=== PATIENT | female | born 1990 | race Caucasian/White ===

== ENCOUNTER 2020-05-10 10:21 | Outpatient (RCR) | payer OTHER ==
--- NOTE | 2020-04-07 09:25 | Diagnostic Imaging Report ---
EXAMINATION: AP supine abdomen INDICATION: Abdominal pain. Patient with history of nephrolithiasis. COMPARISON: 11/04/2018. FINDINGS: There is a nonobstructive bowel gas pattern. Scattered gas and stool is noted in the colon. No unusual stool burden. No abnormal abdominal calcification or organomegaly is appreciated. Surgical clips are demonstrated in the right upper abdominal quadrant. No findings to suggest pneumoperitoneum on this supine study. No acute osseous abnormality is identified. IMPRESSION: Nonobstructive bowel gas pattern. No radiographic evidence of an acute abdominal process. Dictated by: Dictated on workstation # [id number]
--- NOTE | 2020-04-07 09:25 | Diagnostic Imaging Report ---
PROCEDURE: CT abdomen and pelvis without contrast. TECHNIQUE: Multiple contiguous axial images were obtained through the abdomen and pelvis without the use of intravenous contrast. Auto Exposure Controls were utilized during the CT exam to meet ALARA standards for radiation dose reduction. INDICATION: Abdominal pain. Concern for kidney stone. COMPARISON: CT abdomen/pelvis performed on 11/04/2018. FINDINGS: Absence of intravenous contrast decreases sensitivity for detection of focal lesions and vascular pathology. LOWER THORAX: Lung bases are clear. Visualized heart is normal in size. LIVER: Normal. GALLBLADDER: Surgically absent. BILE DUCTS: No biliary ductal dilatation. SPLEEN: Normal. Incidental note is made of unchanged small accessory spleens/splenules in the splenic hilum and anterior to the inferior spleen. PANCREAS: Normal. No pancreatic ductal dilatation. ADRENAL GLANDS: No nodules. KIDNEYS AND URETERS: No hydronephrosis. No nephroureterolithiasis. No ureteral abnormality is demonstrated. STOMACH AND BOWEL: Stomach is physiologically-distended. No bowel obstruction. No inflammatory changes. APPENDIX: Surgically absent. PELVIC ORGANS/BLADDER: No bladder wall thickening or calculus is demonstrated. Uterus demonstrates a normal CT appearance. No adnexal masses. PERITONEUM AND RETROPERITONEUM: No pneumoperitoneum. No abdominal free fluid or loculated collection. LYMPH NODES: No lymphadenopathy. VESSELS: Abdominal aorta is nonaneurysmal. ABDOMINAL WALL: Unremarkable. BONES: No acute abnormality. IMPRESSION: No acute abdominal or pelvic pathology. No evidence of hydroureteronephrosis or nephroureterolithiasis. Dictated by: Dictated on workstation # [id number]
[~2020-05-10 10:21] MED LIST: ACET-78 PO; ALBU17AE3; ASPI-1238 PO; BCP; BTR10SP2 NS; DOCU100C37 PO; FOLI1TAB33 PO; IBUP-1780 PO; OXC5T PO; OXYC1TAB16 PO; PNV11TAB5 PO; PROG200C10 PO
== END 2020-07-06 | disposition home or self-care (01) ==
LOC: MERGE 10:21 → RAD 10:21
PROVIDERS: ATTEND Urology
DX: R10.9 Unspecified abdominal pain (principal); R14.3 Flatulence; Z87.442 Personal history of urinary calculi
CPT/HCPCS: 36415; 74018; 74176; 82140; 82340; 82507; 82570; 83735; 83945; 83986; 84105; 84133; 84300; 84392; 84560

== ENCOUNTER → 2020-06-24 | Outpatient (CLI) | payer BC, OTHER ==
--- NOTE | 2020-06-24 17:40 | Diagnostic Imaging Report ---
INDICATION: Pain in tailbone for past 3-4 months. TECHNIQUE: AP and lateral views of the sacrum and coccyx, 3:40 p.m. CORRELATION STUDY: None. FINDINGS: Sacrum and coccyx alignment is unremarkable. No acute angulation or significant offset. No bony destructive change. Visualized sacroiliac joints are unremarkable. Visualized lower lumbar spine as well as partial visualization of bilateral hip joints, unremarkable. IMPRESSION: Unremarkable examination of the sacrum and coccyx. Dictated by: Dictated on workstation # [id number]
== END ==
LOC: RAD 15:27
PROVIDERS: ATTEND Nurse Practitioner Family
DX: M53.3 Sacrococcygeal disorders, not elsewhere classified (principal)
CPT/HCPCS: 72220

== ENCOUNTER → 2020-08-25 | Outpatient (CLI) | payer OTHER ==
--- NOTE | 2020-08-25 15:23 | Diagnostic Imaging Report ---
PROCEDURE: MRI lumbar spine. TECHNIQUE: Multiplanar, multisequence MRI of the lumbar spine was performed without contrast. INDICATION: Low back pain. COMPARISON: None FINDINGS: Alignment of lumbar column is normal. There is no subluxation or fracture. There is no osseous lesion. The visualized conus medullaris and nerve roots are grossly normal. There is mild diffuse facet and ligament flavum hypertrophy. There is no broad-based disc bulge or herniation. There is no foraminal or central canal stenosis. No paraspinous mass or infiltrative process is seen. IMPRESSION: 1. Mild diffuse facet and ligament flavum hypertrophy. No foraminal or central canal stenosis. 2. No broad-based disc bulge or herniation. Dictated by: Dictated on workstation # [id number]
== END ==
LOC: RAD 14:00
PROVIDERS: ATTEND Physician Assistant
DX: M47.816 Spondylosis without myelopathy or radiculopathy, lumbar region (principal); M24.28 Disorder of ligament, vertebrae
CPT/HCPCS: 72148

== ENCOUNTER → 2020-08-26 | Outpatient (CLI) | payer OTHER ==
[2020-08-26 13:59] LABS: TOTAL PROTEIN 7.2 GM/DL (6.4-8.2)
[2020-08-26 14:01] LABS: BILIRUBIN,TOTAL 0.4 MG/DL (0.1-1.0)
[2020-08-26 14:05] LABS: BILIRUBIN,DIRECT 0.2 MG/DL (0.0-0.3); BILIRUBIN,INDIRECT 0.2 MG/DL
== END ==
LOC: LAB 13:32
PROVIDERS: ATTEND Podiatrist Foot & Ankle Surgery
DX: B35.1 Tinea unguium (principal)
CPT/HCPCS: 36415; 80076

== ENCOUNTER 2021-02-13 09:11 | Outpatient (RCR) | payer OTHER | END 2021-02-25 | disposition home or self-care (01) | LOC: LAB 09:11 | PROVIDERS: ATTEND Obstetrics & Gynecology | DX: N91.2 Amenorrhea, unspecified (principal) | CPT/HCPCS: 36415; 84702 ==

== ENCOUNTER 2021-08-23 10:44 | Emergency (ER) | payer OTHER, MEDICAID ==
[2021-08-23 11:03] LABS: BASOPHILS % (AUTO) 0 % (0-10); EOSINOPHILS # (AUTO) 0.1 10^3/uL (0.0-0.3); EOSINOPHILS % (AUTO) 1 % (0-10); HEMATOCRIT 37 % (35-52); HEMOGLOBIN 12.7 g/dL (11.5-16.0); LYMPHOCYTES % (AUTO) 12 % (12-44); MEAN CORPUSCULAR HEMOGLOBIN 31 pg (25-34); MEAN CORPUSCULAR HGB CONC 34 g/dL (32-36); MEAN CORPUSCULAR VOLUME 91 fL (80-99); MEAN PLATELET VOLUME 11.3 fL (9.0-12.2); MONOCYTES # (AUTO) 0.7 10^3/uL (0.0-1.0); MONOCYTES % (AUTO) 8 % (0-12); NEUTROPHILS # (AUTO) 6.5 10^3/uL (1.8-7.8); NEUTROPHILS % (AUTO) 78 % (42-75); PLATELET COUNT 169 10^3/uL (130-400); WHITE BLOOD COUNT 8.4 10^3/uL (4.3-11.0)
[2021-08-23 11:07] LABS: ALBUMIN 3.2 GM/DL (3.2-4.5); POTASSIUM 3.6 MMOL/L (3.6-5.0)
[2021-08-23 11:08] LABS: CALCIUM 8.6 MG/DL (8.5-10.1)
[2021-08-23 11:10] LABS: TOTAL PROTEIN 6.9 GM/DL (6.4-8.2)
[2021-08-23 11:11] LABS: BILIRUBIN,TOTAL 0.4 MG/DL (0.1-1.0)
[2021-08-23 11:13] LABS: CREATININE SERUM 0.6 MG/DL (0.60-1.30)
[2021-08-23] MEDS ORDERED: LACTATED RINGERS 1,000 ML IV ONE (11:15)
[2021-08-23 11:18] LABS: INR 0.9 (0.8-1.4); PROTHROMBIN TIME PATIENT 12.9 SEC (12.2-14.7)
[2021-08-23 11:22] LABS: BILIRUBIN,URINE NEGATIVE (NEGATIVE); CLARITY,URINE CLEAR; COLOR,URINE YELLOW; GLUCOSE, URINE (UA) NEGATIVE (NEGATIVE); KETONES,URINE NEGATIVE (NEGATIVE); LEUKOCYTE ESTERASE ,URINE 1+ (NEGATIVE); NITRITE,URINE NEGATIVE (NEGATIVE); PROTEIN,URINE NEGATIVE (NEGATIVE)
[2021-08-23] MEDS ORDERED: BEBTELOVIMAB 175 MG/2 ML VIAL IV ONE (11:30)
[2021-08-23 11:34] LABS: BACTERIA,URINE LARGE /HPF; RBC,URINE 0-2 /HPF
--- NOTE | 2021-08-23 11:38 | Diagnostic Imaging Report ---
Indication: Respiratory distress Findings: The lungs are clear. There is no failure, effusion or pneumothorax. IMPRESSION: Normal frontal chest. Dictated by: Dictated on workstation # [id number]
--- NOTE | 2021-08-23 12:01 | ED General ---
General Chief Complaint: COVID19 Suspect/Confirmed Stated Complaint: COVID +, LOW SATS, 32 WEEKS PREG Nursing Triage Note: PT AMB TO RM 9 WITH C/O TESTING POS FOR COVID YESTERDAY AT HOME AND AT [facility]. SYMPTOMS STARTED SUNDAY. PT IS 32 WEEKS AND 2 DAYS . PT STATES O2 SAT AT HOME WAS UPPER 80S AND FELT SOB Source of Information: Patient Exam Limitations: No Limitations History of Present Illness Date Seen by Provider: Aug 23, 2021 Time Seen by Provider: 10:48 Initial Comments This is a 31-year-old young lady at 32 weeks gestational age [facility] with worsening symptoms of shortness of breath and reported hypoxia. She states her oxygen saturation at home was in the upper 80s. She started feeling ill about 48 hours ago and tested positive both at home and at [facility] yesterday. She has not started any antiviral or antibiotic therapies for COVID-19. She denies any chest pain but does feel short of breath. During assessment she is noted to have sinus tachycardia but oxygen saturations were in the upper 90s. She is not in respiratory distress. She is afebrile. She has positive movement today. She is noted to be hypertensive on assessment. She reports history of prior -induced hypertension with a previous . She has not had hypertension noted yet with this . Allergies and Home Medications Allergies Coded Allergies: amoxicillin (Verified Allergy, Unknown, 08/23/21) clavulanic acid (Verified Allergy, Unknown, 08/23/21) hydrocodone (Verified Adverse Reaction, Intermediate, Pt takes Oxycodone at home, 06/25/20) hallucinations Patient Home Medication List Home Medication List Reviewed: Yes Acetaminophen (Acetaminophen) 500 Mg Tablet, 1,000 MG PO Q6HR Prescribed by: MISSY HENLEY on 10/15/18720 Albuterol (Proventil) 17 Gm Inh, (Reported) Entered as Reported by: CELESTE RIDER on 09/03/082052 Docusate Sodium (Docusate Sodium) 100 Mg Capsule, 100 MG PO BID Prescribed by: MISSY HENLEY on 10/15/18720 Ibuprofen (Ibuprofen) 800 Mg Tablet, 800 MG PO Q8HR Prescribed by: MISSY HENLEY on 10/15/18720 Oxycodone Hcl (Oxycodone IR) 5 Mg Tab, 5 MG PO Q6H PRN for PAIN-SEVERE Prescribed by: MISSY HENLEY on 10/15/18 0721 Uis362/FA/Omega3/Dha/Fish Oil ( Gummies) 1 Each Tab.chew, 2 TAB.CHEW PO HS, (Reported) Entered as Reported by: PALMA LARIOS on 03/29/18 0834 [Bcp] , (Reported) Entered as Reported by: CELESTE RIDER on 09/03/082052 Review of Systems Review of Systems Constitutional: no symptoms reported EENTM: no symptoms reported Respiratory: see HPI Cardiovascular: no symptoms reported Gastrointestinal: no symptoms reported Genitourinary: no symptoms reported : Yes Expected Date of Delivery: Oct 01, 2021 Musculoskeletal: no symptoms reported Skin: no symptoms reported Psychiatric/Neurological: No Symptoms Reported Hematologic/Lymphatic: No Symptoms Reported Past Hfxbdyo-Lvrwyy-Pihumw Hx Patient Social History Tobacco Use?: No Use of E-Cig and/or Vaping dev: No Substance use?: No Alcohol Use?: No Pt feels they are or have been: No Immunizations Up To Date Tetanus Booster (TDap): Less than 5yrs Influenza Vaccine Up-to-Date: Yes; Up-to-Date First/Initial COVID19 Vaccinat: NOV 16 Second COVID19 Vaccination Kyle: DEC 16 COVID19 Vaccine 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 Seasonal Allergies Seasonal Allergies: No Past Medical History Surgery/Hospitalization HX: DEPRESSION MARE, APPY, L KNEE SCOPE Surgeries: Yes (WISDOM TEETH) Appendectomy, Orthopedic Respiratory: No Cardiac: Yes Hypertension (With prior ) Neurological: Yes Headaches /Migraines : Yes Expected Date of Delivery: Oct 01, 2021 Reproductive Disorders: Yes Female Reproductive Disorders: Polycystic Ovarian Dis Sexually Transmitted Disease: No HIV/AIDS: No Genitourinary: No Gastrointestinal: No Musculoskeletal: No Endocrine: No HEENT: No Cancer: No Psychosocial: No Integumentary: No Blood Disorders: No Adverse Reaction/Blood Tranf: No Physical Exam Vital Signs Vital Signs - First Documented 08/23/21 08/23/21 10:48 11:21 Temp 36.3 Pulse 127 Resp 20 B/P (MAP) 157/118 (131) O2 Delivery Room Air Capillary Refill : Height, Weight, BMI Height: 5'6.00" Weight: 216lbs. 0.0oz. 97.563996fm; 28.97 BMI Method:Stated General Appearance: No Apparent Distress, WD/WN HEENT: PERRL/EOMI, Normal ENT Inspection, Pharynx Normal Neck: Normal Inspection Respiratory: Lungs Clear, Normal Breath Sounds, No Accessory Muscle Use Cardiovascular: No Edema, No Murmur, Tachycardia Gastrointestinal: Non Tender, Soft, Other (Appropriately gravid for gestational age) Extremity: Normal Inspection, No Calf Tenderness, No Pedal Edema Neurologic/Psychiatric: Alert, Oriented x3, No Motor/Sensory Deficits, Normal Mood/Affect, press worker helper II-XII Norm as Tested Skin: Normal Color, Warm/Dry Progress/Results/Core Measures Suspected Sepsis SIRS Temperature: Pulse: 127 Respiratory Rate: 20 Laboratory Tests 08/23/21 10:55: White Blood Count 8.4 Blood Pressure 157 /118 Mean: 131 Laboratory Tests 08/23/21 10:55: Creatinine 0.60, INR Comment 0.9, Platelet Count 169, Total Bilirubin 0.4 Results/Orders Lab Results Laboratory Tests Test 08/23/21 10:55 08/23/21 11:00 Range/Units White Blood Count 8.4 4.3-11.0 10^3/uL Red Blood Count 4.08 3.80-5.11 10^6/uL Hemoglobin 12.7 11.5-16.0 g/dL Hematocrit 37 35-52 % Mean Corpuscular Volume 91 80-99 fL Mean Corpuscular Hemoglobin 31 25-34 pg Mean Corpuscular Hemoglobin Concent 34 32-36 g/dL Red Cell Distribution Width 13.0 10.0-14.5 % Platelet Count 169 130-400 10^3/uL Mean Platelet Volume 11.3 9.0-12.2 fL Immature Granulocyte % (Auto) 1 % Neutrophils (%) (Auto) 78 H 42-75 % Lymphocytes (%) (Auto) 12 12-44 % Monocytes (%) (Auto) 8 0-12 % Eosinophils (%) (Auto) 1 0-10 % Basophils (%) (Auto) 0 0-10 % Neutrophils # (Auto) 6.5 1.8-7.8 10^3/uL Lymphocytes # (Auto) 1.0 1.0-4.0 10^3/uL Monocytes # (Auto) 0.7 0.0-1.0 10^3/uL Eosinophils # (Auto) 0.1 0.0-0.3 10^3/uL Basophils # (Auto) 0.0 0.0-0.1 10^3/uL Immature Granulocyte # (Auto) 0.1 0.0-0.1 10^3/uL Prothrombin Time 12.9 12.2-14.7 SEC INR Comment 0.9 0.8-1.4 Activated Partial Thromboplast Time 25 24-35 SEC Sodium Level 134 L 135-145 MMOL/L Potassium Level 3.6 3.6-5.0 MMOL/L Chloride Level 105 98-107 MMOL/L Carbon Dioxide Level 21 21-32 MMOL/L Anion Gap 8 5-14 MMOL/L Blood Urea Nitrogen 4 L 7-18 MG/DL Creatinine 0.60 0.60-1.30 MG/DL Estimat Glomerular Filtration Rate 124 BUN/Creatinine Ratio 7 Glucose Level 125 H 70-105 MG/DL Uric Acid 4.5 2.6-7.2 MG/DL Calcium Level 8.6 8.5-10.1 MG/DL Corrected Calcium 9.2 8.5-10.1 MG/DL Total Bilirubin 0.4 0.1-1.0 MG/DL Aspartate Amino Transf (AST/SGOT) 11 5-34 U/L Alanine Aminotransferase (ALT/SGPT) 7 0-55 U/L Alkaline Phosphatase 113 40-136 U/L C-Reactive Protein High Sensitivity 1.82 H 0.00-0.50 MG/DL Total Protein 6.9 6.4-8.2 GM/DL Albumin 3.2 3.2-4.5 GM/DL Urine Color YELLOW Urine Clarity CLEAR Urine pH 7.0 5-9 Urine Specific [place] 1.020 1.016-1.022 Urine Protein NEGATIVE NEGATIVE Urine Glucose (UA) NEGATIVE NEGATIVE Urine Ketones NEGATIVE NEGATIVE Urine Nitrite NEGATIVE NEGATIVE Urine Bilirubin NEGATIVE NEGATIVE Urine Urobilinogen 4.0 < = 1.0 MG/DL Urine Leukocyte Esterase 1+ H NEGATIVE Urine RBC (Auto) NEGATIVE NEGATIVE Urine RBC 0-2 /HPF Urine WBC 10-25 H /HPF Urine Squamous Epithelial Cells 10-25 H /HPF Urine Crystals NONE /LPF Urine Bacteria LARGE H /HPF Urine Casts NONE /LPF Urine Mucus NEGATIVE /LPF Urine Culture Indicated YES My Orders Orders - LINDA ARMANDO MD Cbc With Automated Diff (08/23/21 10:48) Comprehensive Metabolic Panel (08/23/21 10:48) Hs C Reactive Protein (08/23/21 10:48) Chest 1 View, Ap/Pa Only (08/23/21 10:48) Ed Iv/Invasive Line Start (08/23/21 11:03) Lactated Ringers (Lr 1000 Ml Iv Solution (08/23/21 11:15) Protime With Inr (08/23/21 11:06) Partial Thromboplastin Time (08/23/21 11:06) Ua Culture If Indicated (08/23/21 11:06) Uric Acid (08/23/21 11:06) Bebtelovimab (Bebtelovimab) (08/23/21 11:30) Urine Culture (08/23/21 11:00) Medications Given in ED Current Medications Medications Dose Ordered Sig/Shayy Route Start Time Stop Time Status Last Admin Dose Admin Bebtelovimab 175 mg ONCE ONCE IV 08/23/21 11:30 08/23/21 11:31 DC 08/23/21 12:09 175 MG Lactated Ringer's 1,000 ml @ 0 mls/hr Q0M ONCE IV 08/23/21 11:15 08/23/21 11:16 DC 08/23/21 11:08 1,000 MLS/HR Vital Signs/I&O 08/23/21 08/23/21 08/23/21 10:48 11:21 13:12 Temp 36.3 36.3 Pulse 127 59 Resp 20 16 B/P (MAP) 157/118 (131) 115/79 O2 Delivery Room Air Room Air Capillary Refill : Blood Pressure Mean: 131 Progress Note : Progress Note Patient maintained oxygen saturations in the mid to upper 90s throughout her ER stay. Chest x-ray was unremarkable. Basic labs were obtained along with labs t o evaluate for preeclampsia given her hypertension. Labs were unremarkable. Blood pressure trended to normal as patient relaxed in the ER. No treatment was necessary for hypertension. We discussed therapies available to her for treatment of COVID-19. We discussed antiviral oral medications as well as monoclonal antibody therapy. Patient felt more comfortable with monoclonal a ntibody therapy and the infusion was administered while in the ER. See discharge instructions for further discussion. Diagnostic Imaging Diagonstic Imaging: Xray Plain Films/CT/US/NM/MRI: chest Comments Chest x-ray viewed by me and report reviewed. See report below: NAME: [facility] REC#: [id number] PT STATUS: REG ER : 1990 PHYSICIAN: LINDA ARMANDO MD ADMIT DATE: 08/23/21/ER Draft Date of Exam:08/23/21 CHEST 1 VIEW, AP/PA ONLY Indication: Respiratory distress Findings: The lungs are clear. There is no failure, effusion or pneumothorax. IMPRESSION: Normal frontal chest. Dictated on workstation # [id number] Dict: 08/23/21 1136 Trans: 08/23/21 1138 [facility] [id number] Interpreted by: BAIRON DILL Departure Impression Primary Impression: COVID-19 Additional Impressions: Shortness of breath Qualified Codes: Z3A.32 - 32 weeks gestation of Episode of hypertension Disposition: HOME, SELF-CARE Condition: Improved Departure-Patient Inst. Decision time for Depature: 11:58 Referrals: NO,LOCAL PHYSICIAN (PCP/Family) Primary Care Physician Patient Instructions: Bebtelovimab FDA Fact Sheet, COVID-19 and ED Add. Discharge Instructions: Drink plenty of clear liquids to stay well-hydrated. You may use Tylenol (acetaminophen) up to 1000 mg every 6 hours as needed for pain or fever. Continue taking your vitamin. Exercise deep breathing often. Change positions often when lying down. Remain active. Moving about the house, taking short walks, and frequently changing positions can help improve breathing and oxygenation dramatically. Check your oxygen saturations a couple times a day or when feeling more short of breath. If you are having multiple oxygen saturations less than 92% or any oxygen saturation less than 90%, return to the emergency room. Be sure the pulse oximeter is contacting the skin well and not obscured by false nails or nail maori. If you are unsure about the readings, please also check the battery. Notify your regional administrative assistant that you have been seen in the ER and received monoclonal antibody therapy. Review urine culture results with Dr. Henley later this week on or Sunday. Remain in quarantine for at least 5 days from your first full day of symptoms and until significant symptoms have resolved. Then mask for an additional 5 days after quarantine is over. Return to the ER if you have any concerns about worsening condition. All discharge instructions reviewed with patient and/or family. Voiced understanding. Copy Copies To 1: MISSY HENLEY JOSHUA T MD Aug 23, 2021 12:01
[2021-08-23 13:12] VITALS: BP 115/79
== END 2021-08-23 13:12 | disposition home or self-care (01) ==
LOC: EDUNIT# 10:44 → ER 10:48
DX: O98.513 Other viral diseases complicating pregnancy, third trimester (principal); U07.1 COVID-19; O13.3 Gestational [pregnancy-induced] hypertension without significant proteinuria, third trimester; Z3A.32 32 weeks gestation of pregnancy
CPT/HCPCS: 36415; 71045; 80053; 81000; 84550; 85025; 85610; 85730; 86141; 87088

== ENCOUNTER → 2022-01-27 | Outpatient (CLI) | payer OTHER, MEDICAID | LOC: LAB 11:07 | PROVIDERS: ATTEND Obstetrics & Gynecology | DX: N91.2 Amenorrhea, unspecified (principal) | CPT/HCPCS: 36415; 84702 ==

== ENCOUNTER 2022-08-11 18:32 | Outpatient (CLI) | payer OTHER, MEDICAID ==
[~2022-08-11] VITALS: Ht 170.2 cm; Wt 97.3 kg
[2022-08-11 18:59] LABS: BILIRUBIN,URINE NEGATIVE (NEGATIVE); CLARITY,URINE CLOUDY; COLOR,URINE YELLOW; GLUCOSE, URINE (UA) NEGATIVE (NEGATIVE); KETONES,URINE NEGATIVE (NEGATIVE); LEUKOCYTE ESTERASE ,URINE TRACE (NEGATIVE); NITRITE,URINE NEGATIVE (NEGATIVE); PROTEIN,URINE NEGATIVE (NEGATIVE)
[2022-08-11 19:17] LABS: AMORPHOUS SEDIMENT,UR RARE AMOR URATES /LPF; BACTERIA,URINE FEW /HPF; SQUAMOUS EPITHELIAL CELL,UR >50 /HPF; WBC,URINE 0-2 /HPF
[2022-08-11 19:23] VITALS: BP 129/83
[2022-08-11 19:24] VITALS: BP 130/86
[2022-08-11 19:54] VITALS: BP 130/86
--- NOTE | 2022-08-12 09:14 | OB Triage Report ---
Standard Progress Note Progress Notes/Assess & Plan Date Seen by a Provider: Aug 11, 2022 Time Seen by a Provider: 23:00 Expected Date of Delivery: Oct 14, 2022 Gestational Age in Weeks: 30 Gestational Age in Days: 6 LMP/KAVON Comment: As above Progress/Assessment & Plan @ 30 6/7 weeks, GDM patient on Metformin bid with accuchecks at home 120s presents with complaints of low back pain, two episodes of N/V earlier in the day, none here and tolerating p.o. fluids here. UA negative. Hx preeclampsia with first and last , Vital signs stable today. FHR tracing meets criteria for reactive for less than 32 weeks per RN with no contractions noted. Patient denies leakage of fluid or bleeding and cervical exam not done given absence of uterine contractions. patient released to home with routine labor precautions. Will follow up as scheduled with her regular provider Dr. Alonzo in [place] on 08/16/22, sooner prn. Final Diagnosis 30 weeks Not in labor Gestational Diabetes KARIN ENGLISH DO Aug 12, 2022 09:14
== END 2022-08-11 20:15 | disposition home or self-care (01) ==
LOC: LDRP 18:32 → WSo 18:32
PROVIDERS: ATTEND Obstetrics & Gynecology
DX: O99.891 Other specified diseases and conditions complicating pregnancy (principal); R10.9 Unspecified abdominal pain; Z3A.30 30 weeks gestation of pregnancy
CPT/HCPCS: 81000

== ENCOUNTER 2022-08-25 14:01 | Outpatient (CLI) | payer OTHER, MEDICAID ==
[~2022-08-25] VITALS: Ht 170.2 cm; Wt 98.0 kg
[2022-08-25 14:10] VITALS: BP_SYST 149; BP_SYST 87; BP_DIAS 84; BP_DIAS 97
[2022-08-25 14:15] VITALS: BP 125/84
[2022-08-25 14:30] VITALS: BP 120/80
[2022-08-25 14:31] LABS: BILIRUBIN,URINE NEGATIVE (NEGATIVE); CLARITY,URINE CLEAR; COLOR,URINE YELLOW; GLUCOSE, URINE (UA) NEGATIVE (NEGATIVE); KETONES,URINE NEGATIVE (NEGATIVE); LEUKOCYTE ESTERASE ,URINE TRACE (NEGATIVE); NITRITE,URINE NEGATIVE (NEGATIVE); PROTEIN,URINE NEGATIVE (NEGATIVE)
[2022-08-25 14:38] LABS: BACTERIA,URINE FEW /HPF; WBC,URINE 0-2 /HPF
[2022-08-25] MEDS ORDERED: LACTATED RINGERS 1,000 ML IV ONE (14:54)
[2022-08-25] MEDS ORDERED: ONDANSETRON 4 MG/2 ML (SDV) Z0FRAN ONE (14:54)
[2022-08-25] MEDS ORDERED: ONDANSETRON 4 MG/2 ML (SDV) Z0FRAN IVP ONE (15:00)
[2022-08-25] MEDS: LACTATED RINGERS 1,000 ML IV SCH ×2 (15:08→16:16)
== END 2022-08-25 17:20 | disposition home or self-care (01) ==
LOC: LDRP 14:01 → WSo 14:01
PROVIDERS: ATTEND Obstetrics & Gynecology
DX: O99.891 Other specified diseases and conditions complicating pregnancy (principal); R11.0 Nausea; R42 Dizziness and giddiness; Z3A.00 Weeks of gestation of pregnancy not specified
CPT/HCPCS: 81000; 87088; 96361; 96374; 99213

== ENCOUNTER 2022-09-13 11:10 | Outpatient (CLI) | payer OTHER, MEDICAID ==
[2022-09-13] VITALS (15 sets, daily range): BP systolic 100–147; BP diastolic 57–93
[~2022-09-13] VITALS: Ht 170.2 cm; Wt 99.0 kg
[2022-09-13 11:37] LABS: BASOPHILS % (AUTO) 0 % (0-10); EOSINOPHILS # (AUTO) 0.1 10^3/uL (0.0-0.3); EOSINOPHILS % (AUTO) 1 % (0-10); HEMATOCRIT 34 % (35-52); HEMOGLOBIN 11.1 g/dL (11.5-16.0); LYMPHOCYTES % (AUTO) 13 % (12-44); MEAN CORPUSCULAR HEMOGLOBIN 29 pg (25-34); MEAN CORPUSCULAR HGB CONC 33 g/dL (32-36); MEAN CORPUSCULAR VOLUME 88 fL (80-99); MEAN PLATELET VOLUME 11.7 fL (9.0-12.2); MONOCYTES # (AUTO) 0.7 10^3/uL (0.0-1.0); MONOCYTES % (AUTO) 9 % (0-12); NEUTROPHILS # (AUTO) 6.1 10^3/uL (1.8-7.8); NEUTROPHILS % (AUTO) 77 % (42-75); PLATELET COUNT 164 10^3/uL (130-400); WHITE BLOOD COUNT 7.9 10^3/uL (4.3-11.0)
[2022-09-13 11:57] LABS: ALBUMIN 3.2 GM/DL (3.2-4.5); BILIRUBIN,TOTAL 0.4 MG/DL (0.1-1.0); CALCIUM 8.7 MG/DL (8.5-10.1); CREATININE SERUM 0.6 MG/DL (0.60-1.30); POTASSIUM 3.7 MMOL/L (3.6-5.0); TOTAL PROTEIN 6.7 GM/DL (6.4-8.2); URIC ACID 4.8 MG/DL (2.6-7.2)
[2022-09-13] MEDS ORDERED: ONDANSETRON 4 MG (ZOFRAN) ORAL DISSOLVE TAB PO PRN (12:00)
--- NOTE | 2022-09-13 12:02 | History & Physical-OB ---
OB - Chief Complaint & HPI Date/Time Date of Admission: Date of Admission: Date seen by a Provider: Sep 13, 2022 Time Seen by a Provider: 11:33 Chief Complaint/History OB-Reason for Admission/Chief: Obstetrical Complication (preeclampsia ) Hx : 9 Hx Para: 3 Expected Date of Delivery: Oct 14, 2022 Gestational Age in Weeks: 35 Gestational Age in Days: 4 Admission Nurse Assessment Rev: Yes Other Pt was sent form the office for monitoring & PIH labs for elevated BP with HAs vision changes RUQ pain and nausea Allergies and Home Medications Allergies Coded Allergies: amoxicillin (Verified Allergy, Unknown, 08/23/21) clavulanic acid (Verified Allergy, Unknown, 08/23/21) hydrocodone (Verified Adverse Reaction, Intermediate, Pt takes Oxycodone at home, 06/25/20) hallucinations Patient Home Medication List Home Medication List Reviewed: Yes Gzs720/FA/Omega3/Dha/Fish Oil ( Gummies) 1 Each Tab.chew, 2 TAB.CHEW PO HS, (Reported) Entered as Reported by: PALMA LARIOS on 03/29/18 4534 Last Action: Reviewed OB - History Hx of Present Care: Yes Ultrasounds: Normal mid trimester US Obstetrical Complications: Gestational Diabetes, Pre-eclampsia Medical Complications: None Obstetrical History Hx : 10 Hx Para: 3 Hx Total # of Abortions (Spona: 6 Hx Multiple Gestation: No Hx Stillbirth: No Hx Complication: No Hx Induced Hypertens: No Hx Maternal Gestational Diabet: No Delivery History Hx Dystocia: No Hx Large For Gestational Age I: No Hx Small for Gestational Age I: No Hx Section: No Hx Vaginal Delivery Post C-Sec: No Hx Blood Disorders: No Adverse Rxn to Tranfusion: No Patient Past Medical History Noncontributory Social History/Family History Alcohol Use: Denies Use Recreational Drug Use: No 2nd Hand Smoke Exposure: No Immunizations First/Initial COVID19 Vaccine: NOV 16 Second COVID19 Vaccination: DEC 16 Tetanus Booster (TDap): Less than 5yrs OB - Admission Exam Physical Exam Vitals: Vital Signs 09/13/22 11:43 Temp 36.0 Pulse 83 Resp 18 B/P (MAP) 147/93 Pulse Ox 97 O2 Delivery Room Air HEENT: NCAT Lungs: Clear Abdomen: Non tender Extremities: Normal Reflexes: Normal Cervical Dilatation: 2cm Effacement: 50% Station: -3 Membranes: Intact Heart Rate: 150's Labs Laboratory Tests Test 09/13/22 11:20 09/13/22 11:28 Range/Units White Blood Count 7.9 4.3-11.0 10^3/uL Red Blood Count 3.90 3.80-5.11 10^6/uL Hemoglobin 11.1 L 11.5-16.0 g/dL Hematocrit 34 L 35-52 % Mean Corpuscular Volume 88 80-99 fL Mean Corpuscular Hemoglobin 29 25-34 pg Mean Corpuscular Hemoglobin Concent 33 32-36 g/dL Red Cell Distribution Width 13.3 10.0-14.5 % Platelet Count 164 130-400 10^3/uL Mean Platelet Volume 11.7 9.0-12.2 fL Immature Granulocyte % (Auto) 1 % Neutrophils (%) (Auto) 77 H 42-75 % Lymphocytes (%) (Auto) 13 12-44 % Monocytes (%) (Auto) 9 0-12 % Eosinophils (%) (Auto) 1 0-10 % Basophils (%) (Auto) 0 0-10 % Neutrophils # (Auto) 6.1 1.8-7.8 10^3/uL Lymphocytes # (Auto) 1.0 1.0-4.0 10^3/uL Monocytes # (Auto) 0.7 0.0-1.0 10^3/uL Eosinophils # (Auto) 0.1 0.0-0.3 10^3/uL Basophils # (Auto) 0.0 0.0-0.1 10^3/uL Immature Granulocyte # (Auto) 0.1 0.0-0.1 10^3/uL Sodium Level 135 135-145 MMOL/L Potassium Level 3.7 3.6-5.0 MMOL/L Chloride Level 105 98-107 MMOL/L Carbon Dioxide Level 22 21-32 MMOL/L Anion Gap 8 5-14 MMOL/L Blood Urea Nitrogen 5 L 7-18 MG/DL Creatinine 0.60 0.60-1.30 MG/DL Estimat Glomerular Filtration Rate 123 BUN/Creatinine Ratio 8 Glucose Level 75 70-105 MG/DL Uric Acid 4.8 2.6-7.2 MG/DL Calcium Level 8.7 8.5-10.1 MG/DL Corrected Calcium 9.3 8.5-10.1 MG/DL Total Bilirubin 0.4 0.1-1.0 MG/DL Aspartate Amino Transf (AST/SGOT) 12 5-34 U/L Alanine Aminotransferase (ALT/SGPT) 8 0-55 U/L Alkaline Phosphatase 174 H 40-136 U/L Lactate Dehydrogenase 154 125-220 U/L Total Protein 6.7 6.4-8.2 GM/DL Albumin 3.2 3.2-4.5 GM/DL OB - Assessment/Plan/Diagnosis Assessment Admission Dx IUP @ 35w4d GDMA2 Preeclampsia Admission Status: Observation Reason for Inpatient Admission: IUP @ 35w4d Preeclampsia Plan Plan: Expectant Management Discharge Diagnosis Diagnosis: IUP @ 35w4d PIH labs WNL BP improved DC to home PIH precautions Return for 2nd BTMZ tomorrow DAVID DUPREE DO Sep 13, 2022 12:02
[2022-09-13] MEDS ORDERED: ONDANSETRON 4 MG (ZOFRAN) ORAL DISSOLVE TAB ONE (12:11)
[2022-09-13] MEDS ORDERED: BETAMETHASONE ACE/NA PHOS 6 MG/ML (CELESTONE SOLUSPAN) IM SCH (12:30)
== END 2022-09-13 17:25 | disposition home or self-care (01) ==
LOC: WSo 11:10 → LDRP 11:10 → WSo 17:25
PROVIDERS: ATTEND Obstetrics & Gynecology
DX: O16.3 Unspecified maternal hypertension, third trimester (principal); Z3A.35 35 weeks gestation of pregnancy
CPT/HCPCS: 36415; 80053; 82570; 83615; 84156; 84550; 85025; 96372; 99213

== ENCOUNTER 2022-09-14 12:29 | Outpatient (CLI) | payer OTHER, MEDICAID ==
[2022-09-14 12:20] VITALS: BP 123/89
[2022-09-14] MEDS ORDERED: BETAMETHASONE Acetate/Na Phosphate 6 MG/ML INJ IM SCH (12:30)
[2022-09-14 12:36] VITALS: BP 114/77
[2022-09-14 12:51] VITALS: BP 120/77
[2022-09-14 12:53] VITALS: BP 120/77
== END 2022-09-14 13:00 | disposition home or self-care (01) ==
LOC: LDRP 12:29 → WSo 12:29
PROVIDERS: ATTEND Obstetrics & Gynecology
DX: O14.90 Unspecified pre-eclampsia, unspecified trimester (principal); Z3A.00 Weeks of gestation of pregnancy not specified
CPT/HCPCS: 59025; 96372

== ENCOUNTER 2022-09-18 14:53 | Inpatient (IN) | payer OTHER, MEDICAID ==
[2022-09-18] VITALS (58 sets, daily range): BP systolic 102–166; BP diastolic 55–112
[~2022-09-18] VITALS: Ht 170.2 cm; Wt 98.4 kg
[2022-09-18] MEDS ORDERED: MAGNESIUM 2 GM/50 ML IVPB 50 ML IV ONE (15:08)
[2022-09-18] MEDS ORDERED: MAGNESIUM 4 GM/100 ML IVPB 100 ML IV ONE (15:08)
[2022-09-18 15:09] LABS: BASOPHILS % (AUTO) 0 % (0-10); EOSINOPHILS # (AUTO) 0.1 10^3/uL (0.0-0.3); EOSINOPHILS % (AUTO) 1 % (0-10); HEMATOCRIT 35 % (35-52); HEMOGLOBIN 11.7 g/dL (11.5-16.0); LYMPHOCYTES # (AUTO) 1.3 10^3/uL (1.0-4.0); LYMPHOCYTES % (AUTO) 13 % (12-44); MEAN CORPUSCULAR HEMOGLOBIN 29 pg (25-34); MEAN CORPUSCULAR HGB CONC 33 g/dL (32-36); MEAN CORPUSCULAR VOLUME 87 fL (80-99); MEAN PLATELET VOLUME 12.3 fL (9.0-12.2); MONOCYTES # (AUTO) 0.8 10^3/uL (0.0-1.0); MONOCYTES % (AUTO) 8 % (0-12); NEUTROPHILS # (AUTO) 7.7 10^3/uL (1.8-7.8); NEUTROPHILS % (AUTO) 77 % (42-75); PLATELET COUNT 166 10^3/uL (130-400); WHITE BLOOD COUNT 10.1 10^3/uL (4.3-11.0)
[2022-09-18] MEDS ORDERED: ceFAZolin INJECTION 2,000 MG in NS (IVPB) 50 ML 50 ML IV SCH (15:09)
[2022-09-18] MEDS ORDERED: D5 LR 1,000 ML IV SOLN 1,000 ML IV SCH (15:15)
[2022-09-18] MEDS ORDERED: MINERAL OIL 30 ML UDC TOP PRN (15:15)
[2022-09-18] MEDS ORDERED: MAGNESIUM 2 GM/50 ML IVPB 2 GM in MAGNESIUM 4 GM/100 ML IVPB 100 ML IV ONE (15:15)
[2022-09-18] MEDS ORDERED: LIDOCAINE 1% INJ 20 ML VIAL IJ PRN (15:15)
[2022-09-18] MEDS ORDERED: OXYTOCIN PRE-MIX DRIP 500 ML IV SCH ×2 (15:15→22:30)
[2022-09-18] MEDS ORDERED: CALCIUM GLUCONATE 10% 4.65 MEQ/10 ML VIAL IV SCH (15:15)
[2022-09-18] MEDS ORDERED: LIDOCAINE 1% INJ 10 ML VIAL INJ PRN (15:30)
[2022-09-18 15:33] LABS: ALBUMIN 3.2 GM/DL (3.2-4.5); BILIRUBIN,TOTAL 0.3 MG/DL (0.1-1.0); CALCIUM 8.7 MG/DL (8.5-10.1); CREATININE SERUM 0.65 MG/DL (0.60-1.30); POTASSIUM 3.6 MMOL/L (3.6-5.0); TOTAL PROTEIN 6.7 GM/DL (6.4-8.2); URIC ACID 4.6 MG/DL (2.6-7.2)
[2022-09-18] MEDS: MAGNESIUM SULFATE DRIP 500 ML IV SCH (16:32)
[2022-09-18] MEDS ORDERED: LACTATED RINGERS 1,000 ML IV SCH ×3 (17:15→19:30)
[2022-09-18] MEDS ORDERED: fentaNYL 2 mcg/ml BUPIVA 0.125 100 ML ONE (17:26)
[2022-09-18] MEDS ORDERED: fentaNYL 2 mcg/ml BUPIVA 0.125 100 ML EPI SCH (19:30)
[2022-09-18] MEDS ORDERED: METOCLOPRAMIDE INJ 10 MG/2 ML (REGLAN) IV PRN (19:30)
[2022-09-18] MEDS ORDERED: diphenhydrAMINE 50 MG/ML INJ (BENADRYL) IV PRN (19:30)
[2022-09-18] MEDS ORDERED: NALOXONE 0.4 MG/ML 1 ML (NARCAN) VIAL IV PRN ×3 (19:30→22:30)
[2022-09-18] MEDS ORDERED: ONDANSETRON 4 MG/2 ML (SDV) Z0FRAN IV PRN (19:30)
--- NOTE | 2022-09-18 20:57 | History & Physical-OB ---
OB - Chief Complaint & HPI Date/Time Date of Admission: Date of Admission: Sep 18, 2022 at 14:53 Date seen by a Provider: Sep 18, 2022 Time Seen by a Provider: 15:00 Chief Complaint/History OB-Reason for Admission/Chief: Induction of Labor Hx : 9 Hx Para: 3 Hx Last Menstrual Period: 12/01/2021 Expected Date of Delivery: Oct 14, 2022 Gestational Age in Weeks: 36 Gestational Age in Days: 2 Indication for induction: medical complication Other reason for admission: severe preeclampsia Other This 32-year-old -1-5-3 presents to labor and delivery at 36 weeks 2 days EGA for induction of labor. This has been significant for gestational diabetes which has been diet controlled and preeclampsia with severe features. She was sent to labor and delivery for monitoring last week for elevated blood pressures headaches, vision changes, right upper quadrant pain and nausea. She was given 2 doses of betamethasone and her blood pressures looked good and her labs were within normal limits so she was discharged home for further monitoring. This week she arrived to the office for BPP and her BPP was 8/8 however her blood pressures were elevated she stated that her blood pressures at home have been running 140s -150s/90s-100s. Today in the office her symptoms were increased in frequency and intensity she also started having vomiting episodes. It was decided to proceed to induction of labor so patient was sent to labor and delivery. Patient verbalized understanding of the risk benefits and alternatives, signed consents and is ready to proceed. Allergies and Home Medications Allergies Coded Allergies: latex (Verified Allergy, Mild, RASH, 09/18/22) amoxicillin (Verified Allergy, Unknown, 08/23/21) clavulanic acid (Verified Allergy, Unknown, 08/23/21) hydrocodone (Verified Adverse Reaction, Intermediate, Pt takes Oxycodone at home, 06/25/20) hallucinations Patient Home Medication List Home Medication List Reviewed: Yes Vov446/FA/Omega3/Dha/Fish Oil ( Gummies) 1 Each Tab.chew, 2 TAB.CHEW PO HS, (Reported) Entered as Reported by: PALMA LARIOS on 03/29/18 1819 Last Action: Reviewed OB - History Hx of Present Care: Yes Ultrasounds: Normal mid trimester US Obstetrical Complications: Pre-eclampsia Information Induced Hypertension: Yes Maternal Gestational Diabetes: Yes Hemorrhage: No Obstetrical History Hx : 9 Hx Para: 3 Hx # Term Pregnancies: 2 Hx # Pregnancies: 1 Number of Living Children: 5 Hx Termination: No Hx Multiple Gestation: No Hx Ectopic : No Hx Stillbirth: No Hx Complication: No Hx Induced Hypertens: No Hx Maternal Gestational Diabet: No Hx Hemorrhage: No Delivery History Hx Dystocia: No Hx Forceps Assisted Delivery: No Hx Vacuum Extraction Assisted: No Hx Placenta Abnormality: No Hx Distress: No Hx Large For Gestational Age I: No Hx Small for Gestational Age I: No Hx Section: No Hx Vaginal Delivery Post C-Sec: No Hx Blood Disorders: No Adverse Rxn to Tranfusion: No Patient Past Medical History Noncontributory Social History/Family History Alcohol Use: Denies Use Recreational Drug Use: No Smoking Cessation: Never smoker 2nd Hand Smoke Exposure: No Immunizations Influenza Vaccine Up-to-Date: Yes; Up-to-Date First/Initial COVID19 Vaccine: NOV 16 Second COVID19 Vaccination: DEC 16 Tetanus Booster (TDap): Less than 5yrs OB - Admission Exam Physical Exam Vitals: Vital Signs 09/18/22 09/18/22 09/18/22 19:16 19:42 19:52 Temp 36.9 Pulse 95 Resp 16 B/P (MAP) 135/112 (120) Pulse Ox 98 O2 Delivery Room Air HEENT: EOMI Heart: Rhythm Normal Lungs: Clear Abdomen: Gravid Extremities: Edema Reflexes: Normal Cervical Dilatation: 3cm Effacement: 50% Station: -3 Membranes: Intact Heart Rate: 120's Accelerations: Accelerations Present Short Term Variability: Present Fpc Variability: Average (6-25) Contractions on Admission: < 5 Minutes Apart Intensity: Mild Yee Scoring Tool (Modified) Dilation (cm): 3-4cm (2) Effacement (%): 31-51% (1) Descent/Station: -3 (0) Cervix Consistency: Soft (2) Cervix Position: Middle/Mid-Position (1) Yee Score: 7 Labs Laboratory Tests Test 09/18/22 15:05 09/18/22 15:45 09/18/22 17:38 Range/Units White Blood Count 10.1 4.3-11.0 10^3/uL Red Blood Count 4.09 3.80-5.11 10^6/uL Hemoglobin 11.7 11.5-16.0 g/dL Hematocrit 35 35-52 % Mean Corpuscular Volume 87 80-99 fL Mean Corpuscular Hemoglobin 29 25-34 pg Mean Corpuscular Hemoglobin Concent 33 32-36 g/dL Red Cell Distribution Width 13.2 10.0-14.5 % Platelet Count 166 130-400 10^3/uL Mean Platelet Volume 12.3 H 9.0-12.2 fL Immature Granulocyte % (Auto) 1 % Neutrophils (%) (Auto) 77 H 42-75 % Lymphocytes (%) (Auto) 13 12-44 % Monocytes (%) (Auto) 8 0-12 % Eosinophils (%) (Auto) 1 0-10 % Basophils (%) (Auto) 0 0-10 % Neutrophils # (Auto) 7.7 1.8-7.8 10^3/uL Lymphocytes # (Auto) 1.3 1.0-4.0 10^3/uL Monocytes # (Auto) 0.8 0.0-1.0 10^3/uL Eosinophils # (Auto) 0.1 0.0-0.3 10^3/uL Basophils # (Auto) 0.0 0.0-0.1 10^3/uL Immature Granulocyte # (Auto) 0.1 0.0-0.1 10^3/uL Sodium Level 136 135-145 MMOL/L Potassium Level 3.6 3.6-5.0 MMOL/L Chloride Level 107 98-107 MMOL/L Carbon Dioxide Level 20 L 21-32 MMOL/L Anion Gap 9 5-14 MMOL/L Blood Urea Nitrogen 6 L 7-18 MG/DL Creatinine 0.65 0.60-1.30 MG/DL Estimat Glomerular Filtration Rate 121 BUN/Creatinine Ratio 9 Glucose Level 113 H 70-105 MG/DL Uric Acid 4.6 2.6-7.2 MG/DL Calcium Level 8.7 8.5-10.1 MG/DL Corrected Calcium 9.3 8.5-10.1 MG/DL Magnesium Level 1.6 1.6-2.4 MG/DL Total Bilirubin 0.3 0.1-1.0 MG/DL Aspartate Amino Transf (AST/SGOT) 11 5-34 U/L Alanine Aminotransferase (ALT/SGPT) 9 0-55 U/L Alkaline Phosphatase 175 H 40-136 U/L Lactate Dehydrogenase 150 125-220 U/L Total Protein 6.7 6.4-8.2 GM/DL Albumin 3.2 3.2-4.5 GM/DL Syphilis Total Antibody Negative Negative Urine Protein 26 H 6-12 MG/DL Urine Creatinine 215 H 30-125 MG/DL Urine Protein/Creatinine Ratio 0.12 Glucometer 80 70-110 MG/DL OB - Assessment/Plan/Diagnosis Assessment Assessment: induction of labor Admission Dx IUP @ 36w2d Preeclampsia with severe features Gestational diabetes diet controlled Allergies and Home Medications Admission Status: Inpatient Order (span 2 midnights) Reason for Inpatient Admission: IUP @ 36w2d Severe preeclampsia Plan Plan: Induction Induction Method: per Pitocin Protocol Problems: (1) with 36 completed weeks gestation Assessment & Plan: IUP @ 36w2d Admit for labor (2) Severe pre-eclampsia Assessment & Plan: Start Mag Sulfate Start induction (3) Gestational diabetes Assessment & Plan: monitor blood sugars DAVID DUPREE DO Sep 18, 2022 20:57
[2022-09-18] MEDS ORDERED: ACETAMINOPHEN 500 MG TABLET PO PRN (21:00)
[2022-09-18] MEDS ORDERED: ACETAMINOPHEN 500 MG TABLET ONE (21:01)
[2022-09-18] MEDS ORDERED: D5 LR 1,000 ML IV SOLN 1,000 ML IV ONE (21:02)
[2022-09-18] MEDS: D5 LR 1,000 ML IV SOLN 1,000 ML IV SCH (21:06)
--- NOTE | 2022-09-18 21:09 | OB Triage Report ---
Standard Progress Note Progress Notes/Assess & Plan Date Seen by a Provider: Sep 18, 2022 Time Seen by a Provider: 20:35 Expected Date of Delivery: Oct 14, 2022 Gestational Age in Weeks: 36 Gestational Age in Days: 2 LMP/KAVON Comment: Pt is comfortable with epidural BP 133/87 BS 80 FHR 125 CAT I CVX 8/90/-1 AROM clear fluid TOCOs Q 2-3min Pitocin @ 10mu/min Progress/Assessment & Plan Anticipate delivery Diagnosis/Problems Diagnosis/Problems (1) with 36 completed weeks gestation Assessment & Plan: IUP @ 36w2d Admit for labor (2) Severe pre-eclampsia Assessment & Plan: Start Mag Sulfate Start induction (3) Gestational diabetes Assessment & Plan: monitor blood sugars DAVID DUPREE DO Sep 18, 2022 21:09
[2022-09-18] MEDS ORDERED: CATHETER FLUSH 10 ML SYR IV SCH (22:00)
[2022-09-18] MEDS ORDERED: TETANUS,DIPTH,PERTUSS P/F (BOOSTRIX) 0.5 ML VIAL IM ONE (22:30)
[2022-09-18] MEDS ORDERED: BENZOCAINE/MENTHOL (DERMOPLAST) 56 ML CAN TP PRN (22:30)
[2022-09-18] MEDS ORDERED: WITCH HAZEL(TUCKS) 40 EA JAR TOP PRN (22:30)
[2022-09-18] MEDS ORDERED: MEASLES,MUMPS,RUBELLA 1 EA INJ SQ ONE (22:30)
[2022-09-18] MEDS ORDERED: DIBUCAINE 1% OINTMENT 28 GM TUBE TOP PRN (22:30)
--- NOTE | 2022-09-18 22:31 | OB Labor & Delivery Record ---
Vag Delivery Note Vag Delivery Note Date of Delivery: 09/18/22 Preoperative Diagnosis: Najma Esteves is a (32 /Para 9 / 3, Gestational Age (wks)36with [ ] Postoperative Diagnosis: Same Surgeon: DAVID DUPREE Engine Emission Technician: [] Anesthesia: Epidural Delivery Type: Spontaneous vaginal delivery Findings: [] Liveborn Male , [id number]/9, weight 6 pounds 11 ounces 3025 g Lacerations: None Intact placenta with 3 vessel cord. Nuchal cord x1 loose and reduced, No body cord or shoulder dystocia Estimated Blood Loss: 100 ml Complications: None Condition: Stable Description of Procedure: The patient is a 32 year old female who presented At 36 weeks 2 days with gestational diabetes group B strep positive and severe preeclampsia.. She was admitted and informed consent was obtained. Her labor course was uneventful. She progressed to complete dilatation and began to push. She was then set up for delivery. The 's head was delivered atraumatically in the ROSANGELA position. There is a nuchal cord x1 which was loose and reduced. The Anterior shoulder (right) followed by the posterior shoulder and the rest of the were then delivered without difficulty. Upon delivery, the infant was vigorous and placed on maternal chest and the mouth and nares were bulb suctioned. After a delay cord was doubly clamped and cut and the infant remained on maternal chest. An intact placenta with 3-vessel cord delivered spontaneously and there was found to be minimal bleeding.~ Vigorous fundal massage was performed and the fundus was found to be firm. IV oxytocin was given. Examination of the vagina and perineum revealed no lacerations.. QBL was 100 cc. All sponge, instrument and needle counts were correct. Mom and baby were both in stable condition in the labor suite. Vitals - Labs Vital Signs - I&O Vital Signs Date Time Temp Pulse Resp B/P (MAP) Pulse Ox O2 Delivery O2 Flow Rate FiO2 09/18/22 21:12 96 98 Room Air 09/18/22 21:07 86 148/84 (105) 99 Room Air 09/18/22 21:02 98 142/86 (104) 100 Room Air 09/18/22 20:57 92 139/80 (99) 100 Room Air 09/18/22 20:53 96 136/73 (94) 100 Room Air 09/18/22 20:46 100 136/87 (103) 99 Room Air 09/18/22 20:41 102 133/87 (102) 99 Room Air 09/18/22 20:36 98 130/77 (94) 99 Room Air 09/18/22 20:31 85 108/58 (75) 99 Room Air 09/18/22 20:26 81 105/59 (74) 99 Room Air 09/18/22 20:23 91 111/64 (80) 99 Room Air 09/18/22 20:17 88 131/83 (99) 99 Room Air 09/18/22 20:11 101 102/55 (71) 99 Room Air 09/18/22 20:08 85 105/55 (72) Room Air 09/18/22 20:06 86 107/56 (73) 99 Room Air 09/18/22 20:02 100 20 112/59 (76) 98 Room Air 09/18/22 19:52 95 135/112 (120) 98 Room Air 09/18/22 19:43 110 152/72 (98) Room Air 09/18/22 19:42 95 16 136/83 (100) 100 Room Air 09/18/22 19:38 105 129/86 (100) 09/18/22 19:35 99 126/82 (97) 99 Room Air 09/18/22 19:32 101 142/87 (105) 99 Room Air 09/18/22 19:29 94 128/84 (99) 09/18/22 19:26 95 127/85 (99) 99 Room Air 09/18/22 19:23 97 133/88 (103) Room Air 09/18/22 19:20 94 18 136/84 (101) 100 Room Air 09/18/22 19:16 36.9 88 20 138/85 (102) 100 Room Air 09/18/22 19:11 91 18 140/92 (108) 100 Room Air 09/18/22 19:00 88 18 166/91 (116) 100 Room Air 09/18/22 18:45 74 18 139/89 (106) 99 Room Air 09/18/22 18:31 78 18 144/91 (108) 100 Room Air 09/18/22 18:15 84 18 143/87 (105) Room Air 09/18/22 18:00 36.7 82 18 140/93 (109) Room Air 09/18/22 17:45 81 18 134/89 (104) Room Air 09/18/22 17:34 85 18 133/86 (102) Room Air 09/18/22 17:19 77 18 137/83 (101) Room Air 09/18/22 17:04 86 18 133/88 (103) Room Air 09/18/22 16:48 95 18 132/87 (102) Room Air 09/18/22 16:33 85 18 133/82 (99) Room Air 09/18/22 16:18 96 18 139/85 (103) Room Air 09/18/22 16:03 109 18 136/83 (100) Room Air 09/18/22 15:53 35.8 89 18 98 Room Air 09/18/22 15:47 89 18 135/83 (100) Room Air 09/18/22 15:33 105 18 132/86 (101) Room Air 09/18/22 15:18 105 18 144/83 (103) Room Air 09/18/22 15:03 104 18 140/93 (109) 98 Room Air 09/18/22 14:48 100 18 137/87 (104) 98 Room Air Labs Laboratory Tests 09/18/22 15:05: White Blood Count 10.1, Red Blood Count 4.09, Hemoglobin 11.7, Hematocrit 35, Mean Corpuscular Volume 87, Mean Corpuscular Hemoglobin 29, Mean Corpuscular Hemoglobin Concent 33, Red Cell Distribution Width 13.2, Platelet Count 166, Mean Platelet Volume 12.3H, Immature Granulocyte % (Auto) 1, Neutrophils (%) (Auto) 77H, Lymphocytes (%) (Auto) 13, Monocytes (%) (Auto) 8, Eosinophils (%) (Auto) 1, Basophils (%) (Auto) 0, Neutrophils # (Auto) 7.7, Lymphocytes # (Auto) 1.3, Monocytes # (Auto) 0.8, Eosinophils # (Auto) 0.1, Basophils # (Auto) 0.0, Immature Granulocyte # (Auto) 0.1, Sodium Level 136, Potassium Level 3.6, Chloride Level 107, Carbon Dioxide Level 20L, Anion Gap 9, Blood Urea Nitrogen 6L, Creatinine 0.65, Estimat Glomerular Filtration Rate 121, BUN/Creatinine Ratio 9, Glucose Level 113H, Uric Acid 4.6, Calcium Level 8.7, Corrected Calcium 9.3, Magnesium Level 1.6, Total Bilirubin 0.3, Aspartate Amino Transf (AST/S GOT) 11, Alanine Aminotransferase (ALT/SGPT) 9, Alkaline Phosphatase 175H, Lactate Dehydrogenase 150, Total Protein 6.7, Albumin 3.2, Syphilis Total Antibody Negative 09/18/22 15:45: Urine Protein 26H, Urine Creatinine 215H, Urine Protein/Creatinine Ratio 0.12 09/18/22 17:38: Glucometer 80 DAVID DUPREE DO Sep 18, 2022 22:31
[2022-09-18] MEDS ORDERED: FERR325T24 PO (22:33)
[2022-09-18] MEDS ORDERED: IBUP-1780 PO (22:33)
[2022-09-18] MEDS ORDERED: DOCU100C37 PO (22:33)
[2022-09-18] MEDS ORDERED: IBUPROFEN 600 MG (MOTRIN) TAB PO ONE (23:38)
[2022-09-18] MEDS ORDERED: IBUPROFEN 800 MG (MOTRIN) TAB PO ONE (23:42)
[2022-09-18] MEDS: IBUPROFEN 800 MG (MOTRIN) TAB PO SCH (23:44)
[2022-09-19] VITALS (18 sets, daily range): BP systolic 100–157; BP diastolic 59–105
[2022-09-19] MEDS: MAGNESIUM SULFATE DRIP 500 ML IV SCH ×3 (02:22→20:40)
[2022-09-19] MEDS ORDERED: CATHETER FLUSH 10 ML SYR IV SCH (06:00)
[2022-09-19] MEDS ORDERED: ceFAZolin INJECTION 1,000 MG in NS (IVPB) 50 ML 50 ML IV SCH (06:00)
[2022-09-19 06:12] LABS: BASOPHILS % (AUTO) 0 % (0-10); EOSINOPHILS # (AUTO) 0.1 10^3/uL (0.0-0.3); EOSINOPHILS % (AUTO) 0 % (0-10); HEMATOCRIT 32 % (35-52); HEMOGLOBIN 10.4 g/dL (11.5-16.0); LYMPHOCYTES # (AUTO) 1.3 10^3/uL (1.0-4.0); LYMPHOCYTES % (AUTO) 10 % (12-44); MEAN CORPUSCULAR HEMOGLOBIN 29 pg (25-34); MEAN CORPUSCULAR HGB CONC 33 g/dL (32-36); MEAN CORPUSCULAR VOLUME 87 fL (80-99); MEAN PLATELET VOLUME 12.3 fL (9.0-12.2); MONOCYTES % (AUTO) 8 % (0-12); NEUTROPHILS # (AUTO) 10.8 10^3/uL (1.8-7.8); NEUTROPHILS % (AUTO) 81 % (42-75); PLATELET COUNT 136 10^3/uL (130-400); WHITE BLOOD COUNT 13.4 10^3/uL (4.3-11.0)
[2022-09-19 07:05] LABS: MAGNESIUM 4.4 MG/DL (1.6-2.4)
--- NOTE | 2022-09-19 07:11 | Postpartum Progress Note ---
Note Note Day #1 Subjective: PatientIs doing well states she has a headache. Has not had Tylenol yet this morning.. Urine output is good. Blood pressures have been stable 130s/80s.Magnesium sulfate at 2 g an hour. Tolerating a regular diet without nausea or vomiting. Normal lochia. Pain is well controlled with oral pain medications. Breast-feeding Objective: [] Physical Exam: General - Alert and oriented, no apparent distress Heart regular rate and rhythm Lungs clear to auscultation Abdomen - Soft, appropriately tender to palpation, non-distended, fundus firm at umbilicus Lochia minimal Extremities - no edema, negative Tammy's bilaterally DTRs +1/4 equal bilaterally Assessment: [] post- day #1, status post Spontaneous vaginal delivery. Severe preeclampsia blood pressures are stable on magnesium 2 g an hour Recovering well, hemodynamically stable Plan: Routine care. Encourage breast feeding. Encourage ambulation. Ferrous sulfate supplementation. Plan for MAG discontinuation at 24 hours. Vitals - Labs Vital Signs - I&O Vital Signs Date Time Temp Pulse Resp B/P (MAP) Pulse Ox O2 Delivery O2 Flow Rate FiO2 09/19/22 06:00 75 16 130/85 (100) 09/19/22 05:00 70 16 100/59 (73) 09/19/22 04:00 70 20 117/75 (89) 09/19/22 03:00 78 18 120/74 (89) 09/19/22 02:00 82 105/60 (75) 09/19/22 01:00 73 109/64 (79) 09/19/22 00:40 74 124/82 (96) 09/19/22 00:08 36.4 89 20 119/63 (81) 97 Room Air 09/18/22 23:53 77 116/61 (79) 09/18/22 23:38 73 124/72 (89) 09/18/22 23:24 95 135/86 (102) 09/18/22 23:08 82 115/65 (82) 09/18/22 22:54 86 123/78 (93) 09/18/22 22:38 77 125/59 (81) 09/18/22 22:23 90 136/63 (87) 09/18/22 22:08 92 125/82 (96) 09/18/22 22:06 88 123/78 (93) 09/18/22 21:56 100 128/83 (98) 09/18/22 21:39 93 118/74 (89) 99 Room Air 09/18/22 21:25 108 121/76 (91) 99 Room Air 09/18/22 21:12 96 98 Room Air 09/18/22 21:07 86 148/84 (105) 99 Room Air 09/18/22 21:02 98 142/86 (104) 100 Room Air 09/18/22 20:57 92 139/80 (99) 100 Room Air 09/18/22 20:53 96 136/73 (94) 100 Room Air 09/18/22 20:46 100 136/87 (103) 99 Room Air 09/18/22 20:41 102 133/87 (102) 99 Room Air 09/18/22 20:36 98 130/77 (94) 99 Room Air 09/18/22 20:31 85 108/58 (75) 99 Room Air 09/18/22 20:26 81 105/59 (74) 99 Room Air 09/18/22 20:23 91 111/64 (80) 99 Room Air 09/18/22 20:17 88 131/83 (99) 99 Room Air 09/18/22 20:11 101 102/55 (71) 99 Room Air 09/18/22 20:08 85 105/55 (72) Room Air 09/18/22 20:06 86 107/56 (73) 99 Room Air 09/18/22 20:02 100 20 112/59 (76) 98 Room Air 09/18/22 19:52 95 135/112 (120) 98 Room Air 09/18/22 19:43 110 152/72 (98) Room Air 09/18/22 19:42 95 16 136/83 (100) 100 Room Air 09/18/22 19:38 105 129/86 (100) 09/18/22 19:35 99 126/82 (97) 99 Room Air 09/18/22 19:32 101 142/87 (105) 99 Room Air 09/18/22 19:29 94 128/84 (99) 09/18/22 19:26 95 127/85 (99) 99 Room Air 09/18/22 19:23 97 133/88 (103) Room Air 09/18/22 19:20 94 18 136/84 (101) 100 Room Air 09/18/22 19:16 36.9 88 20 138/85 (102) 100 Room Air 09/18/22 19:11 91 18 140/92 (108) 100 Room Air 09/18/22 19:00 88 18 166/91 (116) 100 Room Air 09/18/22 18:45 74 18 139/89 (106) 99 Room Air 09/18/22 18:31 78 18 144/91 (108) 100 Room Air 09/18/22 18:15 84 18 143/87 (105) Room Air 09/18/22 18:00 36.7 82 18 140/93 (109) Room Air 09/18/22 17:45 81 18 134/89 (104) Room Air 09/18/22 17:34 85 18 133/86 (102) Room Air 09/18/22 17:19 77 18 137/83 (101) Room Air 09/18/22 17:04 86 18 133/88 (103) Room Air 09/18/22 16:48 95 18 132/87 (102) Room Air 09/18/22 16:33 85 18 133/82 (99) Room Air 09/18/22 16:18 96 18 139/85 (103) Room Air 09/18/22 16:03 109 18 136/83 (100) Room Air 09/18/22 15:53 35.8 89 18 98 Room Air 09/18/22 15:47 89 18 135/83 (100) Room Air 09/18/22 15:33 105 18 132/86 (101) Room Air 09/18/22 15:18 105 18 144/83 (103) Room Air 09/18/22 15:03 104 18 140/93 (109) 98 Room Air 09/18/22 14:48 100 18 137/87 (104) 98 Room Air I & O 09/19/22 07:00 Intake Total 3250 ml Balance 3250 ml Labs Laboratory Tests 09/18/22 15:05: White Blood Count 10.1, Red Blood Count 4.09, Hemoglobin 11.7, Hematocrit 35, Mean Corpuscular Volume 87, Mean Corpuscular Hemoglobin 29, Mean Corpuscular Hemoglobin Concent 33, Red Cell Distribution Width 13.2, Platelet Count 166, Mean Platelet Volume 12.3H, Immature Granulocyte % (Auto) 1, Neutrophils (%) (Auto) 77H, Lymphocytes (%) (Auto) 13, Monocytes (%) (Auto) 8, Eosinophils (%) (Auto) 1, Basophils (%) (Auto) 0, Neutrophils # (Auto) 7.7, Lymphocytes # (Auto) 1.3, Monocytes # (Auto) 0.8, Eosinophils # (Auto) 0.1, Basophils # (Auto) 0.0, Immature Granulocyte # (Auto) 0.1, Sodium Level 136, Potassium Level 3.6, Ch loride Level 107, Carbon Dioxide Level 20L, Anion Gap 9, Blood Urea Nitrogen 6L, Creatinine 0.65, Estimat Glomerular Filtration Rate 121, BUN/Creatinine Ratio 9, Glucose Level 113H, Uric Acid 4.6, Calcium Level 8.7, Corrected Calcium 9.3, Magnesium Level 1.6, Total Bilirubin 0.3, Aspartate Amino Transf (AST/SGOT) 11, Alanine Aminotransferase (ALT/SGPT) 9, Alkaline Phosphatase 175H, Lactate Dehydrogenase 150, Total Protein 6.7, Albumin 3.2, Syphilis Total Antibody Negative 09/18/22 15:45: Urine Protein 26H, Urine Creatinine 215H, Urine Protein/Creatinine Ratio 0.12 09/18/22 17:38: Glucometer 80 09/19/22 06:00: White Blood Count 13.4H, Red Blood Count 3.63L, Hemoglobin 10.4L, Hematocrit 32L , Mean Corpuscular Volume 87, Mean Corpuscular Hemoglobin 29, Mean Corpuscular Hemoglobin Concent 33, Red Cell Distribution Width 13.1, Platelet Count 136, Mean Platelet Volume 12.3H, Immature Granulocyte % (Auto) 1, Neutrophils (%) (Auto) 81H, Lymphocytes (%) (Auto) 10L, Monocytes (%) (Auto) 8, Eosinophils (%) (Auto) 0, Basophils (%) (Auto) 0, Neutrophils # (Auto) 10.8H, Lymphocytes # (Auto) 1.3, Monocytes # (Auto) 1.0, Eosinophils # (Auto) 0.1, Basophils # (Auto) 0.0, Immature Granulocyte # (Auto) 0.1, Glucose Level 103, Magnesium Level 4.4H DAVID DUPREE DO Sep 19, 2022 07:11
[2022-09-19] MEDS: DOCUSATE SODIUM 100 MG (COLACE) CAP PO SCH ×2 (08:17→20:16)
[2022-09-19] MEDS: FERROUS SULF 325 MG (IRON) TAB PO SCH (08:17)
[2022-09-19] MEDS: PRENATAL VITAMIN 1 EA TAB PO SCH (08:17)
[2022-09-19] MEDS: IBUPROFEN 800 MG (MOTRIN) TAB PO SCH ×2 (08:17→16:23)
[2022-09-19] MEDS: D5 LR 1,000 ML IV SOLN 1,000 ML IV SCH (09:43)
[2022-09-19] MEDS: ACETAMINOPHEN 500 MG TABLET PO SCH ×3 (09:44→17:22)
--- NOTE | 2022-09-19 10:40 | Anesthesia-Regional Post-Op ---
Regional Patient Condition Mental Status: Alert, Oriented x3 Circulation: Same as Pre-Op Headache: Absent Sensation: Full Recovery Motor Block: Absent Post Op Complications Complications None Follow Up Care/Instructions Patient Instructions None needed. Anesthesia/Patient Condition Patient is doing well, no complaints, stable vital signs, no apparent adverse anesthesia problems. No complications reported per nursing. [place] home [place] [facility] [place] Criteria: Yes KARIN ERWIN CRNA Sep 19, 2022 10:39
[2022-09-20] VITALS (7 sets, daily range): BP systolic 126–145; BP diastolic 77–87
[2022-09-20] MEDS: IBUPROFEN 800 MG (MOTRIN) TAB PO SCH ×3 (00:02→17:07)
[2022-09-20] MEDS: ACETAMINOPHEN 500 MG TABLET PO SCH ×2 (00:03→06:34)
--- NOTE | 2022-09-20 08:43 | Postpartum Progress Note ---
Note Note Day # 2 Subjective: Patient is without complaints. Ambulating, voiding. Tolerating a regular diet without nausea or vomiting. Normal lochia. Pain is well controlled with oral pain medications.Blood pressures are stable. Mag has been off since 2199 last night Breast-feeding Objective: Vital signs stable afebrile Physical Exam: General - Alert and oriented, no apparent distress Breast symmetrical no erythema edema or engorgement Abdomen - Soft, appropriately tender to palpation, non-distended, fundus firm at umbilicus Lochia minimal Extremities - Nontender no erythema or edema Assessment: [] post- day # 2, status post [] vaginal delivery. Severe preeclampsiablood pressure stable off mag since 2199. Recovering well, hemodynamically stable Plan: Routine care. Encourage breast feeding. Encourage ambulation. Ferrous sulfate supplementation. Plan for discharge If blood pressures are stable this evening Vitals - Labs Vital Signs - I&O Vital Signs Date Time Temp Pulse Resp B/P (MAP) Pulse Ox O2 Delivery O2 Flow Rate FiO2 09/20/22 06:34 65 20 126/77 (93) 99 Room Air 09/20/22 04:27 36.2 74 18 128/84 (99) 99 Room Air 09/20/22 00:01 36.9 76 18 135/87 (103) 99 Room Air 09/19/22 20:07 36.5 90 18 131/77 (95) 99 Room Air 09/19/22 16:00 36.7 80 16 117/79 (92) 99 Room Air 09/19/22 15:00 75 16 121/77 (92) Room Air 09/19/22 14:00 86 16 125/83 (97) 95 Room Air 09/19/22 13:00 77 16 124/77 (93) 97 Room Air 09/19/22 12:00 36.8 76 16 119/84 (96) Room Air 09/19/22 11:00 98 16 120/80 (93) Room Air 09/19/22 10:00 122 157/105 (122) 09/19/22 09:00 74 16 127/76 (93) I & O 09/20/22 07:00 Intake Total 3025 ml Output Total 5540 ml Balance -2515 ml DAVID DUPREE DO Sep 20, 2022 08:43
[2022-09-20] MEDS: DOCUSATE SODIUM 100 MG (COLACE) CAP PO SCH (09:06)
[2022-09-20] MEDS: ACETAMINOPHEN PO PRN ×2 (09:07→17:07)
[2022-09-20] MEDS: PRENATAL VITAMIN 1 EA TAB PO SCH (09:07)
[2022-09-20] MEDS: CAFFEINE PO PRN ×2 (09:07→17:07)
[2022-09-20] MEDS: FERROUS SULF 325 MG (IRON) TAB PO SCH (09:07)
[2022-09-20] MEDS: BUTALBITAL PO PRN ×2 (09:07→17:07)
[2022-09-20] MEDS ORDERED: MEASLES,MUMPS,RUBELLA 1 EA INJ ONE (09:19)
== END 2022-09-20 18:40 | disposition home or self-care (01) | DRG 807 ==
LOC: LDRP 14:53
PROVIDERS: ADMIT Obstetrics & Gynecology; ATTEND Obstetrics & Gynecology
PROC: 10E0XZZ Delivery of Products of Conception, External Approach (ICD-10-PCS; principal; 2022-09-18)
PROC: 3E033VJ Introduction of Other Hormone into Peripheral Vein, Percutaneous Approach (ICD-10-PCS; 2022-09-18)
DX: O14.14 Severe pre-eclampsia complicating childbirth (principal); Z37.0 Single live birth; Z3A.36 36 weeks gestation of pregnancy; O60.14X0 Preterm labor third trimester with preterm delivery third trimester, not applicable or unspecified; O24.420 Gestational diabetes mellitus in childbirth, diet controlled; O99.824 Streptococcus B carrier state complicating childbirth; O69.81X0 Labor and delivery complicated by cord around neck, without compression, not applicable or unspecified; Z23 Encounter for immunization; Z88.1 Allergy status to other antibiotic agents; Z88.5 Allergy status to narcotic agent; Z91.09 Other allergy status, other than to drugs and biological substances
CPT/HCPCS: 36415; 80053; 82570; 82947; 83615; 83735; 84156; 84550; 85025; 86780; 86850; 86900; 86901; 90707